=== PATIENT | male | born 1985 | race Caucasian/White ===

== ENCOUNTER → 2017-12-12 | Outpatient (CLI) | payer OTHER ==
[2017-12-12 16:05] LABS: HEMATOCRIT 42.4 % (42.0-52.0); HEMOGLOBIN 14.8 g/dl (13.5-17.5); MEAN CORPUSCULAR HEMOGLOBIN 29.8 pg (27.0-33.0); MEAN CORPUSCULAR HGB CONC 34.9 g/dl (32.0-36.5); MEAN CORPUSCULAR VOLUME 85.5 fl (80.0-96.0); PLATELET COUNT, AUTOMATED 255 10^3/uL (150-450); RED BLOOD COUNT 4.96 10^6/uL (4.30-6.10); RED CELL DISTRIBUTION WIDTH 11.9 % (11.5-14.5); WHITE BLOOD COUNT 11.2 10^3/uL (4.0-10.0)
[2017-12-12 16:19] LABS: APPEARANCE, URINE CLEAR (CLEAR); BACTERIA, URINE AUTO NEGATIVE (NEGATIVE); BILIRUBIN, URINE AUTO NEGATIVE (NEGATIVE); BLOOD, URINE BLOOD 1+ (NEGATIVE); COLOR, URINE YELLOW (YELLOW); GLUCOSE, URINE (UA) AUTO NEGATIVE (NEGATIVE); KETONE, URINE AUTO NEGATIVE (NEGATIVE); LEUKOCYTE ESTERASE, URINE AUTO NEGATIVE (NEGATIVE); MUCUS, URINE SMALL (NEGATIVE); NITRITE, URINE AUTO NEGATIVE (NEGATIVE); PROTEIN, URINE AUTO NEGATIVE (NEGATIVE); RBC, URINE AUTO 8 /HPF (0-3); SPECIFIC GRAVITY URINE AUTO 1.021 (1.002-1.035); SQUAMOUS EPITHELIAL CELL UR AU 0 /HPF (0-6); UROBILINOGEN, URINE AUTO 0.2 mg/dL (0.0-2.0); WBC, URINE AUTO 0 /HPF (0-3)
[2017-12-12 16:32] LABS: ALBUMIN 4.3 GM/DL (3.2-5.2); ALBUMIN/GLOBULIN RATIO 1.39 (1.00-1.93); ALKALINE PHOSPHATASE 77 U/L (45-117); ALT/SGPT 32 U/L (12-78); ANION GAP 7 MEQ/L (8-16); AST/SGOT 16 U/L (7-37); BILIRUBIN,TOTAL 0.7 MG/DL (0.2-1.0); BLOOD UREA NITROGEN 16 MG/DL (7-18); CALCIUM LEVEL 9.2 MG/DL (8.5-10.1); CARBON DIOXIDE LEVEL 29 MEQ/L (21-32); CHLORIDE LEVEL 103 MEQ/L (98-107); CHOLESTEROL LEVEL 215 MG/DL (<200); CHOLESTEROL RISK RATIO 3.524 (<5); GLOMERULAR FILTRATION RATE > 60.0 (>60); GLUCOSE, FASTING 93 MG/DL (70-100); HDL CHOLESTEROL 61 MG/DL (>40); LDL CHOLESTEROL 138.2 MG/DL (<100); NON-HDL-C 154 MG/DL; POTASSIUM SERUM 4.3 MEQ/L (3.5-5.1); SODIUM LEVEL 139 MEQ/L (136-145); THYROID STIMULATING HORMONE 0.424 uIU/ML (0.358-3.740); TOTAL PROTEIN 7.4 GM/DL (6.4-8.2); TRIGLYCERIDES LEVEL 79 MG/DL (<150)
== END ==
LOC: M LAB 15:41
DX: D64.9 Anemia, unspecified (principal); R53.83 Other fatigue; M54.40 Lumbago with sciatica, unspecified side
CPT/HCPCS: 71046

== ENCOUNTER 2018-10-31 14:47 | Emergency (ER) | payer OTHER ==
[~2018-10-31] VITALS: Ht 172.7 cm; Wt 79.6 kg
[2018-10-31] MEDS ORDERED: KETOROLAC 60 MG/2 ML VIAL (J1885) IM ONE (16:00)
[2018-10-31 16:30] LABS: HEMATOCRIT 44.6 % (42.0-52.0); HEMOGLOBIN 15.4 g/dl (13.5-17.5); MEAN CORPUSCULAR HEMOGLOBIN 30.1 pg (27.0-33.0); MEAN CORPUSCULAR HGB CONC 34.5 g/dl (32.0-36.5); MEAN CORPUSCULAR VOLUME 87.3 fl (80.0-96.0); PLATELET COUNT, AUTOMATED 253 10^3/uL (150-450); RED BLOOD COUNT 5.11 10^6/uL (4.30-6.10); WHITE BLOOD COUNT 8.9 10^3/uL (4.0-10.0)
[2018-10-31 16:58] LABS: CPK CREATINE PHOSPHOKINASE 126 U/L (39-308); MB/CK RELATIVE INDEX 0.79 (< OR =4); NT-PRO BNP 12 PG/ML (<125); TROPONIN I < 0.02 NG/ML (< 0.10)
--- NOTE | 2018-10-31 17:05 | REP ---
Chest two views HISTORY: History: Chest pain Comparison: 12/12/2017 The lungs are clear. The heart is normal in size. The pulmonary vasculature is normal in appearance. The bony structure is intact. IMPRESSION: No acute disease. Electronically Signed by Jose Perez MD 10/31/2018 04:57 P
[2018-10-31 17:12] VITALS: BP 131/89
--- NOTE | 2018-10-31 20:03 | ECGEPIP ---
[facility] - ED Test Date: 2018-10-31 Pat Name: NATALYA BERNSTEIN Department: Room: - Gender: Male Terminal Supervisor: kathy : 1985 Requested By: INOCENCIO Martinez PA-C Order Number: [id number] Reading MD: Danish Su Measurements Intervals [place] Rate: 57 P: 54 CT: 146 QRS: 25 QRSD: 93 T: 32 QT: 409 QTc: 401 Interpretive Statements SINUS BRADYCARDIA Comparison tracing not on file Electronically Signed on 10-31-2018 20:02:31 EDT by Danish Su
== END 2018-10-31 17:15 | disposition home or self-care (01) ==
LOC: M ED 14:47
DX: S29.011A Strain of muscle and tendon of front wall of thorax, initial encounter (principal); R00.1 Bradycardia, unspecified; X50.0XXA Overexertion from strenuous movement or load, initial encounter; Y92.39 Other specified sports and athletic area as the place of occurrence of the external cause; Y93.89 Activity, other specified; Y99.9 Unspecified external cause status; Z77.098 Contact with and (suspected) exposure to other hazardous, chiefly nonmedicinal, chemicals; F12.10 Cannabis abuse, uncomplicated
CPT/HCPCS: 71046; 80047; 82550; 82553; 83880; 85027; 93005; 96372; 99284; J1885

== ENCOUNTER 2020-03-25 23:48 | Emergency (ER) | payer OTHER ==
[~2020-03-25] VITALS: Ht 172.7 cm; Wt 80.7 kg
[2020-03-26] MEDS ORDERED: NAPR-837 PO (01:26)
[2020-03-26] MEDS ORDERED: ROBA750T4 PO (01:26)
[2020-03-26] MEDS ORDERED: methocarbamoL 750 MG TAB PO ONE (01:30)
[2020-03-26] MEDS ORDERED: KETOROLAC 60MG 2ML VIAL IM ONE (01:30)
[2020-03-26] MEDS ORDERED: ONDANSETRON 4 MG ORAL DISINTEGRATING TAB PO ONE (02:00)
[2020-03-26 02:03] VITALS: BP 151/93
== END 2020-03-26 02:05 | disposition home or self-care (01) ==
LOC: M ED 23:48
DX: M54.5 Low back pain (principal); G89.29 Other chronic pain; F17.200 Nicotine dependence, unspecified, uncomplicated
CPT/HCPCS: 96372; 99283; J1885; Q0162

== ENCOUNTER 2020-03-29 09:22 | Emergency (ER) | payer OTHER ==
[~2020-03-29] VITALS: Ht 172.7 cm; Wt 80.4 kg
[~2020-03-29 09:22] MED LIST: NAPR-837 PO; ROBA750T4 PO
[2020-03-29] MEDS ORDERED: CYCLOBENZAPRINE 10MG TABLET PO ONE (11:00)
[2020-03-29] MEDS ORDERED: ONDANSETRON 4MG/2ML VIAL IV ONE (11:00)
[2020-03-29] MEDS ORDERED: LIDOCAINE 5% (LIDODERM) PATCH TD ONE (11:00)
--- NOTE | 2020-03-29 11:10 | REP ---
INDICATION: abd and back pain. COMPARISON: Comparison is made with images from CT abdomen pelvis December 30, 2014.. TECHNIQUE: Single view supine. FINDINGS: Bowel gas pattern is unremarkable. Psoas margin of flank stripes are intact. No mass or organomegaly is seen. No pathologic calcification is appreciated. There are 2 calcifications in the right pelvis. These were not observed on December 12, 2017 or the [address] study. A cannot exclude distal ureteral calculus. No other evidence to suggest urinary tract calculus is seen. No bony abnormality. IMPRESSION: Two calcifications in the right true pelvis not previously observed. Question a right ureteral calculus. Otherwise negative. <Electronically signed by Jose Menezes > 03/29/20 [id number]
[2020-03-29 11:25] LABS: BASO # 0.1 10^3/uL (0.0-0.2); BASO % 0.4 % (0.0-1.0); EOS % 0.1 % (0.0-3.0); HEMATOCRIT 42.9 % (42.0-52.0); HEMOGLOBIN 14.4 g/dl (13.5-17.5); LYMPH # 1.1 10^3/uL (1.5-5.0); LYMPH % 9.2 % (24.0-44.0); MEAN CORPUSCULAR HEMOGLOBIN 28.3 pg (27.0-33.0); MEAN CORPUSCULAR HGB CONC 33.6 g/dl (32.0-36.5); MEAN CORPUSCULAR VOLUME 84.4 fl (80.0-96.0); MONO # 0.7 10^3/uL (0.0-0.8); MONO % 5.8 % (0.0-5.0); NEUTROPHILS # 9.7 10^3/uL (1.5-8.5); NEUTROPHILS % 84.1 % (36.0-66.0); PLATELET COUNT, AUTOMATED 311 10^3/uL (150-450); RED BLOOD COUNT 5.08 10^6/uL (4.30-6.10); WHITE BLOOD COUNT 11.6 10^3/uL (4.0-10.0)
[2020-03-29 11:59] LABS: ALBUMIN 4.9 GM/DL (3.2-5.2); BILIRUBIN,DIRECT 0.2 MG/DL (0.0-0.2); BILIRUBIN,TOTAL 0.7 MG/DL (0.2-1.0); TOTAL PROTEIN 7.8 GM/DL (6.4-8.2)
[2020-03-29] MEDS ORDERED: KETO10TAB PO (12:06)
[2020-03-29] MEDS ORDERED: ONDA4TAB6 PO (12:06)
[2020-03-29] MEDS ORDERED: FLOM0.4C39 PO (12:06)
[2020-03-29 13:02] VITALS: BP 144/74
[2020-03-29] MEDS ORDERED: **NOTE PATIENT COMMENT** MISC XX ONE (23:00)
== END 2020-03-29 13:04 | disposition home or self-care (01) ==
LOC: M ED 09:22
DX: N20.1 Calculus of ureter (principal); M54.9 Dorsalgia, unspecified; G89.29 Other chronic pain; F17.290 Nicotine dependence, other tobacco product, uncomplicated; Z79.899 Other long term (current) drug therapy
CPT/HCPCS: 74018; 80047; 80076; 81001; 83690; 85025; 96374; 99284; J2405

== ENCOUNTER 2020-04-02 12:48 | Emergency (ER) | payer OTHER ==
[~2020-04-02] VITALS: Ht 172.7 cm; Wt 80.6 kg
[~2020-04-02 12:48] MED LIST changes: +FLOM0.4C39 PO; +KETO10TAB PO; +ONDA4TAB6 PO
[2020-04-02] MEDS ORDERED: NS 1,000 ML IV ONE (14:15)
[2020-04-02] MEDS ORDERED: ONDANSETRON 4MG/2ML VIAL IV ONE (14:15)
[2020-04-02] MEDS ORDERED: PANTOPRAZOLE 40MG VIAL (C9113 PER 1) IV ONE (14:15)
[2020-04-02 14:30] LABS: BASO # 0.1 10^3/uL (0.0-0.2); BASO % 0.6 % (0.0-1.0); EOS % 0.2 % (0.0-3.0); HEMATOCRIT 39.9 % (42.0-52.0); HEMOGLOBIN 13.7 g/dl (13.5-17.5); LYMPH # 2.1 10^3/uL (1.5-5.0); LYMPH % 16.9 % (24.0-44.0); MEAN CORPUSCULAR HEMOGLOBIN 28.7 pg (27.0-33.0); MEAN CORPUSCULAR HGB CONC 34.3 g/dl (32.0-36.5); MEAN CORPUSCULAR VOLUME 83.5 fl (80.0-96.0); MONO # 1.2 10^3/uL (0.0-0.8); MONO % 9.4 % (0.0-5.0); NEUTROPHILS # 9.1 10^3/uL (1.5-8.5); NEUTROPHILS % 72.3 % (36.0-66.0); PLATELET COUNT, AUTOMATED 350 10^3/uL (150-450); RED BLOOD COUNT 4.78 10^6/uL (4.30-6.10); WHITE BLOOD COUNT 12.5 10^3/uL (4.0-10.0)
[2020-04-02 14:41] LABS: INR 0.97; PROTHROMBIN TIME 13.1 SECONDS (12.5-14.3)
[2020-04-02] MEDS ORDERED: ISOVUE-370 76% 100ML VIAL As Ordered ONE (14:41)
[2020-04-02 14:42] LABS: PARTIAL THROMBOPLASTIN TIME 24.1 SECONDS (24.2-38.5)
[2020-04-02 14:55] LABS: ALBUMIN 4.7 GM/DL (3.2-5.2); BILIRUBIN,DIRECT 0.3 MG/DL (0.0-0.2); BILIRUBIN,TOTAL 0.9 MG/DL (0.2-1.0)
--- NOTE | 2020-04-02 15:24 | REP ---
INDICATION: lower abdominal pains; bloody stool. COMPARISON: CT 12/30/2014, 06/20/2014 TECHNIQUE: Bolus of 100 mL Isovue 370 scanning through the abdomen and pelvis with coronal and sagittal reconstructions. FINDINGS: CT abdomen: Lung bases are clear. Heart is not enlarged there is no pericardial thickening or effusion. No definite hiatal hernia. The liver, spleen, gallbladder and pancreas show no acute changes or inflammatory findings. Adrenal glands are normal. No biliary dilatation or ascites in the upper abdomen kidneys show symmetric enhancement without stone, mass, cyst or hydronephrosis. No hydroureter or ureteral stone. The aorta is without aneurysm. No periaortic, retroperitoneal or mesenteric pathologic sized lymphadenopathy. Lung window review of all CT slices in the abdomen and pelvis shows no perforation or free air. Stomach and small bowel loops show only mild thickening of the proximal jejunal wall that may reflect some nonspecific gastroenteritis. No dilatation of loops with air-fluid levels are inflammatory changes in the mesentery. Abdominal portions of the colon in its right and transverse segments was unremarkable. There are a couple of diverticula in the descending colon without colitis or diverticulitis there. Bone windows shows spine and visualized ribs unremarkable. CT pelvis: Sacrum, pelvis and hips are without acute finding. No renal, ureteral or bladder stone. Bladder wall thickness was normal. Distal ureters without dilatation. There is no ascites in the deep pelvis. No ventral or inguinal hernia nor pathologic inguinal adenopathy. Distal left colon, sigmoid and rectum are collapsed without pericolonic inflammatory changes. However, the wall appears slightly thickened in the collapsed segments I could not exclude some mild colitis. Appendix is seen and normal with the cecum unremarkable. IMPRESSION: 1. Some mild thickening of small bowel wall involving the proximal jejunum without significant dilatation. This could be result of a nonspecific gastroenteritis. 2. Collapse of the mid to distal left colon and sigmoid into the rectum with questionable mild wall thickening and no pericolonic inflammatory changes. Cannot entirely exclude some very mild colitis. No diverticulitis or significant pericolonic inflammatory change seen. 3. There is no ascites, perforation or free air. Appendix is seen and normal. 4. Solid organs in the upper abdomen were unremarkable. <Electronically signed by Vidal Valdovinos > 04/02/20 [id number]
[2020-04-02] MEDS ORDERED: CARA1TAB6 PO (16:49)
[2020-04-02] MEDS ORDERED: AUGM875T28 PO (16:49)
[2020-04-02] MEDS ORDERED: REGL10TA6 PO (16:49)
[2020-04-02] MEDS ORDERED: PROT1TAB2 PO (16:50)
[2020-04-02] MEDS ORDERED: SUCRALFATE 1 GM TAB PO ONE (17:00)
[2020-04-02 17:07] VITALS: BP 132/86
== END 2020-04-02 17:09 | disposition home or self-care (01) ==
LOC: M ED 12:48
DX: K52.9 Noninfective gastroenteritis and colitis, unspecified (principal); M54.5 Low back pain; G89.29 Other chronic pain; F17.290 Nicotine dependence, other tobacco product, uncomplicated; Z79.899 Other long term (current) drug therapy
CPT/HCPCS: 74177; 80047; 80076; 83690; 85025; 85610; 85730; 86850; 86900; 86901; 96361; 96374; 96375; 99284; C9113; J2405; Q9967

== ENCOUNTER → 2020-04-07 | Outpatient (CLI) | payer OTHER ==
[~2020-04-07] MED LIST changes: +AUGM875T28 PO; +CARA1TAB6 PO; +PROT1TAB2 PO; +REGL10TA6 PO
[2020-04-07 09:49] LABS: APPEARANCE, URINE CLEAR (CLEAR); BACTERIA, URINE AUTO NEGATIVE (NEGATIVE); BILIRUBIN, URINE AUTO NEGATIVE (NEGATIVE); BLOOD, URINE BLOOD 1+ (NEGATIVE); COLOR, URINE YELLOW (YELLOW); GLUCOSE, URINE (UA) AUTO NEGATIVE (NEGATIVE); KETONE, URINE AUTO NEGATIVE (NEGATIVE); LEUKOCYTE ESTERASE, URINE AUTO NEGATIVE (NEGATIVE); MUCUS, URINE SMALL (NEGATIVE); NITRITE, URINE AUTO NEGATIVE (NEGATIVE); PROTEIN, URINE AUTO NEGATIVE (NEGATIVE); RBC, URINE AUTO 8 /HPF (0-3); SPECIFIC GRAVITY URINE AUTO 1.014 (1.002-1.035); SQUAMOUS EPITHELIAL CELL UR AU 0 /HPF (0-6); UROBILINOGEN, URINE AUTO 0.2 mg/dL (0.0-2.0); WBC, URINE AUTO 0 /HPF (0-3)
[2020-04-07 10:04] LABS: HEMOGLOBIN A1c 5.2 %
[2020-04-07 10:07] LABS: HEMATOCRIT 40.1 % (42.0-52.0); HEMOGLOBIN 13.1 g/dl (13.5-17.5); MEAN CORPUSCULAR HEMOGLOBIN 29.1 pg (27.0-33.0); MEAN CORPUSCULAR HGB CONC 32.7 g/dl (32.0-36.5); MEAN CORPUSCULAR VOLUME 89.1 fl (80.0-96.0); PLATELET COUNT, AUTOMATED 344 10^3/uL (150-450); WHITE BLOOD COUNT 8.1 10^3/uL (4.0-10.0)
--- NOTE | 2020-04-07 10:10 | REP ---
INDICATION: HTN/FATGIUE/ LABS . COMPARISON: 10/31/2018 FINDINGS: The superior mediastinal structures are midline. The cardiac silhouette is unremarkable in size, shape, and position. The diaphragmatic surfaces of the lungs are regular, and the costophrenic angles are clear. The pulmonary durbin are clear. The imaged osseous structures are intact. IMPRESSION: There is no acute cardiopulmonary disease. <Electronically signed by Addy Phan > 04/07/20 [id number]
[2020-04-07 10:22] LABS: ALT/SGPT 45 U/L (12-78); BILIRUBIN,TOTAL 0.2 MG/DL (0.2-1.0); BLOOD UREA NITROGEN 7 MG/DL (7-18); CARBON DIOXIDE LEVEL 29 MEQ/L (21-32); CHLORIDE LEVEL 107 MEQ/L (98-107); CHOLESTEROL LEVEL 157 MG/DL (<200); CREATININE FOR GFR 0.82 MG/DL (0.70-1.30); GLOMERULAR FILTRATION RATE > 60.0 (>60); GLUCOSE, FASTING 95 MG/DL (70-100); HDL CHOLESTEROL 50 MG/DL (>40); LDL CHOLESTEROL 95 MG/DL (<100); NON-HDL-C 107 MG/DL; POTASSIUM SERUM 4.7 MEQ/L (3.5-5.1); SODIUM LEVEL 141 MEQ/L (136-145); THYROID STIMULATING HORMONE 0.489 uIU/ML (0.358-3.740); TOTAL PROTEIN 6.7 GM/DL (6.4-8.2); TRIGLYCERIDES LEVEL 58 MG/DL (<150)
--- NOTE | 2020-04-07 13:31 | ECGEPIP ---
[facility] Test Date: 2020-04-07 Pat Name: NATALYA BERNSTEIN Department: Room: - Gender: Male Operations Officer: PATY : 1985 Requested By: Jalyn Lara Order Number: [id number] Reading MD: Basia Cooney Measurements Intervals [place] Rate: 86 P: 65 [place]: 138 QRS: 22 QRSD: 80 T: 44 QT: 338 QTc: 406 Interpretive Statements SINUS RHYTHM RATE FASTER C/W 10/31/18 EARLY REPOLAR CHANGES Electronically Signed on 04-07-2020 13:30:43 EST by Basia Cooney
== END ==
LOC: M LAB 09:20
PROVIDERS: ATTEND Family Medicine
DX: I10 Essential (primary) hypertension (principal); R53.83 Other fatigue; E03.9 Hypothyroidism, unspecified

== ENCOUNTER → 2020-05-03 | Outpatient (CLI) | payer OTHER ==
[~2020-05-03] MED LIST changes: +E-Z-GAS II EFFERVESCENT PACKET (SODIUM BICARB./CITRIC ACID/SIMETHICONE) As Ordered ONE; +E-Z-HD 98% w/w 340GM SUSP BTL As Ordered ONE; +E-Z-PAQUE 96% w/w SUSP 176GM BTL As Ordered ONE
--- NOTE | 2020-05-03 15:33 | REP ---
INDICATION: PEPTIC ULCER ABD PAIN. COMPARISON: Upper GI study done 05/02/2008. TECHNIQUE: This procedure was performed by Tita Rich RUST, under the direct supervision of Dr. Menezes. Images were reviewed with Dr. Menezes prior to dictation. Liquid barium and gas producing crystals were given in the erect position, as well as liquid barium in the prone oblique position in order to perform a double contrast upper GI examination. FINDINGS: The electric switch repairer film shows no organomegaly or pathological masses. The intestinal gas pattern is unremarkable. The oral and pharyngeal stages of deglutition were unremarkable. Esophageal transport is prompt and efficient and there is no evidence of esophagitis, stricture, or mucosal ring. There is no evidence of a hiatal hernia. There was no gastroesophageal reflux noted . The stomach hassan are normally outlined. There is diffuse gastric fold thickening, concerning for gastritis. The duodenal hassan are normally outlined. The mucosal folds are smooth and regular. There is no duodenitis, peptic ulcer disease or neoplasm. The visualized portion of the proximal small bowel appears normal in course and caliber. IMPRESSION: Diffuse gastric fold thickening, concerning for gastritis. 0.3 minutes of fluoroscopy time was utilized for this procedure. Some fluoroscopic images are performed with last image hold technology. These images require no additional radiation. <Electronically signed by Tita Rich > 05/03/20 [id number] <Electronically signed by Jose Menezes > 05/03/20 [id number]
== END ==
LOC: M RAD 08:55
PROVIDERS: ATTEND Family Medicine
DX: K27.3 Acute peptic ulcer, site unspecified, without hemorrhage or perforation (principal)

== ENCOUNTER 2020-07-25 09:07 | Emergency (ER) | payer OTHER ==
[~2020-07-25] VITALS: Ht 172.7 cm; Wt 80.2 kg
[~2020-07-25 09:07] MED LIST changes: -E-Z-GAS II EFFERVESCENT PACKET (SODIUM BICARB./CITRIC ACID/SIMETHICONE) As Ordered ONE; -E-Z-HD 98% w/w 340GM SUSP BTL As Ordered ONE; -E-Z-PAQUE 96% w/w SUSP 176GM BTL As Ordered ONE
[2020-07-25] MEDS ORDERED: SUCR1TAB56 (09:13)
[2020-07-25] MEDS ORDERED: LISI10TA22 (09:13)
[2020-07-25] MEDS ORDERED: NS 1,000 ML IV ONE (09:35)
[2020-07-25] MEDS ORDERED: HALOPERIDOL 5MG/ML VIAL (J1630 PER 1) IV ONE (09:35)
[2020-07-25 10:31] LABS: ALBUMIN 4.8 GM/DL (3.2-5.2); BILIRUBIN,DIRECT 0.3 MG/DL (0.0-0.2); BILIRUBIN,TOTAL 1.3 MG/DL (0.2-1.0); TOTAL PROTEIN 8.1 GM/DL (6.4-8.2)
[2020-07-25] MEDS ORDERED: POTASSIUM CHLORIDE 10 MEQ SR TABLET PO ONE (10:45)
--- NOTE | 2020-07-25 11:26 | REP ---
INDICATION: vomitin/epigastric COMPARISON: 05/02/2008 TECHNIQUE: Real time izaguirre scale ultrasound examination using curved array transducer. FINDINGS: Liver is normal in contour, size, and echogenicity without focal hepatic lesions identified. Pancreas is incompletely evaluated due to interposed bowel gas. The gallbladder is normal and without gallstones, wall thickening, or pericholecystic fluid. No biliary ductal dilatation is appreciated and the common bile duct measures 4.3 mm diameter. Right kidney is normal in reniform shape without hydronephrosis and measures 11.3 x 4.7 x 4.5 cm. No ascites in the visualized right upper quadrant. IMPRESSION: Normal limited right upper quadrant ultrasound <Electronically signed by Lj Ng > 07/25/20 1121
[2020-07-25 12:58] VITALS: BP 160/78
== END 2020-07-25 13:00 | disposition home or self-care (01) ==
LOC: M ED 09:07
DX: F12.188 Cannabis abuse with other cannabis-induced disorder (principal); R11.2 Nausea with vomiting, unspecified; I10 Essential (primary) hypertension; K21.9 Gastro-esophageal reflux disease without esophagitis; K57.93 Diverticulitis of intestine, part unspecified, without perforation or abscess with bleeding; F17.200 Nicotine dependence, unspecified, uncomplicated
CPT/HCPCS: 36415; 76705; 80047; 80076; 83690; 96361; 96374; 99284; J1630

== ENCOUNTER → 2020-09-14 | Outpatient (CLI) | payer OTHER ==
[~2020-09-14] MED LIST changes: +LISI10TA22; +SUCR1TAB56
--- NOTE | 2020-09-14 10:22 | REP ---
INDICATION: ABD PAIN. COMPARISON: None TECHNIQUE: After the intravenous administration of 6.6 mCi of technetium 99 M Choletec hepatobiliary imaging was performed with gallbladder ejection fraction calculation. FINDINGS: The gallbladder is promptly visualized at 15 minutes. Distribution of the radiotracer throughout the hepatocytes is symmetric and diffuse. Biliary to bowel transit is normal. The gallbladder ejection fraction calculation of 70%. This is within the normal range. IMPRESSION: Findings are within normal limits. <Electronically signed by Addy Phan > 09/14/20 1012
== END ==
LOC: M RAD 07:53
PROVIDERS: ATTEND Surgery
DX: R10.9 Unspecified abdominal pain (principal)
CPT/HCPCS: 78227; A9537

== ENCOUNTER → 2021-03-21 | Outpatient (CLI) | payer OTHER ==
[2021-03-21 09:43] LABS: HEMATOCRIT 45.8 % (42.0-52.0); HEMOGLOBIN 15.1 g/dl (13.5-17.5); MEAN CORPUSCULAR HEMOGLOBIN 29.3 pg (27.0-33.0); MEAN CORPUSCULAR VOLUME 88.8 fl (80.0-96.0); PLATELET COUNT, AUTOMATED 298 10^3/uL (150-450); RED BLOOD COUNT 5.16 10^6/uL (4.30-6.10); WHITE BLOOD COUNT 6.9 10^3/uL (4.0-10.0)
[2021-03-21 10:17] LABS: ALBUMIN 4.3 GM/DL (3.2-5.2); ALT/SGPT 50 U/L (12-78); BILIRUBIN,TOTAL 0.3 MG/DL (0.2-1.0); BLOOD UREA NITROGEN 11 MG/DL (7-18); CALCIUM LEVEL 9.9 MG/DL (8.5-10.1); CARBON DIOXIDE LEVEL 29 MEQ/L (21-32); CHLORIDE LEVEL 106 MEQ/L (98-107); CHOLESTEROL LEVEL 240 MG/DL (<200); CHOLESTEROL RISK RATIO 4.897 (<5); CREATININE FOR GFR 0.93 MG/DL (0.70-1.30); GLOMERULAR FILTRATION RATE > 60.0 (>60); GLUCOSE, FASTING 105 MG/DL (70-100); HDL CHOLESTEROL 49 MG/DL (>40); LDL CHOLESTEROL 165 MG/DL (<100); NON-HDL-C 191 MG/DL; POTASSIUM SERUM 4.5 MEQ/L (3.5-5.1); SODIUM LEVEL 138 MEQ/L (136-145); THYROID STIMULATING HORMONE 0.602 uIU/ML (0.358-3.740); TOTAL PROTEIN 7.6 GM/DL (6.4-8.2); TRIGLYCERIDES LEVEL 132 MG/DL (<150)
[2021-03-21 10:18] LABS: TESTOSTERONE 458 NG/DL (241-827)
[2021-03-21 10:38] LABS: HEMOGLOBIN A1c 5.1 %
== END ==
LOC: M LAB 08:57
PROVIDERS: ATTEND Family Medicine
DX: R53.83 Other fatigue (principal); E03.9 Hypothyroidism, unspecified; I10 Essential (primary) hypertension

== ENCOUNTER → 2022-04-19 | Outpatient (CLI) | payer OTHER ==
[2022-04-19 16:09] LABS: HEMATOCRIT 45.1 % (42.0-52.0); HEMOGLOBIN 15.1 g/dl (13.5-17.5); MEAN CORPUSCULAR HEMOGLOBIN 29.4 pg (27.0-33.0); MEAN CORPUSCULAR HGB CONC 33.5 g/dl (32.0-36.5); MEAN CORPUSCULAR VOLUME 87.7 fl (80.0-96.0); PLATELET COUNT, AUTOMATED 256 10^3/uL (150-450); RED BLOOD COUNT 5.14 10^6/uL (4.30-6.10)
[2022-04-19 17:07] LABS: ALBUMIN 4.5 G/DL (3.2-5.2); ALT/SGPT 45 U/L (7.0-40); BILIRUBIN,TOTAL 0.4 MG/DL (0.3-1.2); BLOOD UREA NITROGEN 14 MG/DL (9-23); CALCIUM LEVEL 10.2 MG/DL (8.5-10.1); CARBON DIOXIDE LEVEL 29 MMOL/L (20-31); CHLORIDE LEVEL 103 MMOL/L (98-107); CHOLESTEROL LEVEL 186 MG/DL (<200); CHOLESTEROL RISK RATIO 3.67 (<5); CREATININE FOR GFR 0.94 MG/DL (0.70-1.30); GLOMERULAR FILTRATION RATE > 60.0 (>60); GLUCOSE, FASTING 93 MG/DL (60-100); HDL CHOLESTEROL 50.6 MG/DL (>40); NON-HDL-C 135 MG/DL; POTASSIUM SERUM 4.2 MMOL/L (3.5-5.1); SODIUM LEVEL 141 MMOL/L (136-145); TESTOSTERONE 307 NG/DL (241-827); TOTAL 25(OH) VITAMIN D 23.1 NG/ML (20.0-100.0); TOTAL PROTEIN 7.5 G/DL (5.7-8.2); TRIGLYCERIDES LEVEL 237 MG/DL (<150)
[2022-04-19 17:19] LABS: HEMOGLOBIN A1c 5.1 % (4.0-6.0)
== END ==
LOC: M LAB 15:45
PROVIDERS: ATTEND Family Medicine
DX: I10 Essential (primary) hypertension (principal); R53.83 Other fatigue; E03.9 Hypothyroidism, unspecified

== ENCOUNTER → 2024-05-01 | Outpatient (CLI) | payer OTHER ==
[~2024-05-01] MED LIST changes: +ONDA-282 PO; -ONDA4TAB6 PO
[2024-05-01 11:28] LABS: HEMATOCRIT 43.5 % (42.0-52.0); HEMOGLOBIN 14.9 g/dl (13.5-17.5); MEAN CORPUSCULAR HEMOGLOBIN 29.8 pg (27.0-33.0); MEAN CORPUSCULAR HGB CONC 34.3 g/dl (32.0-36.5); PLATELET COUNT, AUTOMATED 260 10^3/uL (150-450); WHITE BLOOD COUNT 7.4 10^3/uL (4.0-10.0)
[2024-05-01 11:45] LABS: HEMOGLOBIN A1c 5.3 % (4.0-6.0)
[2024-05-01 11:57] LABS: ALKALINE PHOSPHATASE 87 U/L (40-129); ALT/SGPT 45 U/L (7.0-40); AST/SGOT 25 U/L (<34); BILIRUBIN,TOTAL 0.5 MG/DL (0.3-1.2); BLOOD UREA NITROGEN 12 MG/DL (9-23); CALCIUM LEVEL 9.9 MG/DL (8.5-10.1); CARBON DIOXIDE LEVEL 27 MMOL/L (20-31); CHLORIDE LEVEL 106 MMOL/L (98-107); CHOLESTEROL LEVEL 187 MG/DL (<200); CHOLESTEROL RISK RATIO 3.97 (<5); CREATININE FOR GFR 0.88 MG/DL (0.70-1.30); GLOMERULAR FILTRATION RATE > 60.0 (>60); GLUCOSE, FASTING 98 MG/DL (60-100); HDL CHOLESTEROL 47.1 MG/DL (>40); LDL CHOLESTEROL 110.7 MG/DL (<100); NON-HDL-C 139.9 MG/DL; POTASSIUM SERUM 4.1 MMOL/L (3.5-5.1); SODIUM LEVEL 139 MMOL/L (136-145); TOTAL PROTEIN 7.1 G/DL (5.7-8.2); TRIGLYCERIDES LEVEL 146 MG/DL (<150)
[2024-05-01 11:59] LABS: TESTOSTERONE 466 NG/DL (241-827); THYROID STIMULATING HORMONE 0.958 uIU/ML (0.55-4.78)
== END ==
LOC: M RAD 10:32
PROVIDERS: ATTEND Family Medicine
DX: I10 Essential (primary) hypertension (principal)

== ENCOUNTER 2024-08-16 05:11 | Emergency (ER) | payer OTHER ==
[~2024-08-16] VITALS: Ht 172.7 cm; Wt 86.4 kg
[2024-08-16 05:22] VITALS: BP 143/95; TEMP 98.1; O2SAT 99
[2024-08-16] MEDS ORDERED: SIMV20TA22 (05:32)
[2024-08-16 05:44] LABS: BASO # 0.1 10^3/uL (0.0-0.2); EOS # 0.1 10^3/uL (0.0-0.5); EOS % 1.1 % (0.0-3.0); HEMATOCRIT 44.1 % (42.0-52.0); LYMPH # 1.8 10^3/uL (1.5-5.0); LYMPH % 21.7 % (24.0-44.0); MEAN CORPUSCULAR HEMOGLOBIN 29.7 pg (27.0-33.0); MEAN CORPUSCULAR VOLUME 87.3 fl (80.0-96.0); MONO # 0.7 10^3/uL (0.0-0.8); MONO % 8.1 % (2.0-8.0); NEUTROPHILS # 5.6 10^3/uL (1.5-8.5); NEUTROPHILS % 67.7 % (36.0-66.0); PLATELET COUNT, AUTOMATED 277 10^3/uL (150-450); RED BLOOD COUNT 5.05 10^6/uL (4.30-6.10); WHITE BLOOD COUNT 8.3 10^3/uL (4.0-10.0)
[2024-08-16 05:58] LABS: INR 0.91; PROTHROMBIN TIME 12.5 SECONDS (12.5-14.5)
[2024-08-16 06:04] LABS: LIPASE 86 U/L (12-53)
[2024-08-16 06:06] LABS: ALBUMIN 4.5 G/DL (3.2-5.2); ALKALINE PHOSPHATASE 91 U/L (40-129); ALT/SGPT 40 U/L (7.0-40); AST/SGOT 20 U/L (<34); BILIRUBIN,DIRECT 0.1 MG/DL (<0.4); BILIRUBIN,TOTAL 0.4 MG/DL (0.3-1.2); BLOOD UREA NITROGEN 15 MG/DL (9-23); CALCIUM LEVEL 10.1 MG/DL (8.5-10.1); CARBON DIOXIDE LEVEL 26 MMOL/L (20-31); CHLORIDE LEVEL 103 MMOL/L (98-107); CREATININE FOR GFR 0.81 MG/DL (0.70-1.30); GLOMERULAR FILTRATION RATE > 60.0 (>60); GLUCOSE, FASTING 112 MG/DL (60-100); POTASSIUM SERUM 4.4 MMOL/L (3.5-5.1); SODIUM LEVEL 140 MMOL/L (136-145); TOTAL PROTEIN 7.7 G/DL (5.7-8.2)
[2024-08-16 06:09] LABS: CK-MB VALUE MASS < 1.0 NG/ML (<3.6)
[2024-08-16 06:31] LABS: CPK CREATINE PHOSPHOKINASE 138 U/L (46-171); MB/CK RELATIVE INDEX 0.72 (< OR =4)
== END 2024-08-16 07:00 | disposition left against medical advice (07) ==
LOC: M ED 05:11
DX: Z53.21 Procedure and treatment not carried out due to patient leaving prior to being seen by health care provider (principal)